=== PATIENT | female | born 1970 | race Two or more races ===

== ENCOUNTER 2018-04-12 05:00 | Day surgery (SDC) | payer OTHER ==
[~2018-04-12 05:00] MED LIST: LISINOPRIL10 MG PO
[2018-04-12] MEDS ORDERED: ULTRACET PO (10:23)
[2018-04-12] MEDS ORDERED: RECTICARE30 GM TOP (10:24)
== END 2018-04-12 14:30 | disposition home or self-care (01) ==
LOC: CIR.AMB 05:00
DX: D3A.026 Benign carcinoid tumor of the rectum (principal)